=== PATIENT | male | born 1940 | race Hispanic/Latino ===

== ENCOUNTER 2019-09-26 19:56 | Emergency (ER) | payer OTHER ==
[2019-09-26 20:52] LABS: BASOPHILS % (AUTO) 0.6 % (0.0-5.0); EOSINOPHILS % (AUTO) 1.8 % (0.0-8.0); HEMATOCRIT 34.9 % (42-54); MEAN CORPUSCULAR HEMOGLOBIN 27.7 pg (27.0-33.0); MEAN CORPUSCULAR HGB CONC 33.6 g/dL (32.0-36.0); MEAN CORPUSCULAR VOLUME 82.4 fL (79-99); MONOCYTES % (AUTO) 6.7 % (3.0-13.0); NEUTROPHILS % (AUTO) 77.9 % (40.0-77.0); PLATELET COUNT (AUTO) 286 K/uL (130-400); RED BLOOD CELL COUNT(AUTO) 4.23 MIL/uL (4.50-6.20); RED CELL DISTRIBUTION WIDTH 14.6 % (11.0-15.5); WHITE BLOOD COUNT (AUTO) 9.7 K/uL (4.8-10.8)
[2019-09-26 21:00] LABS: CREATININE 1.7 mg/dL (0.5-1.5); POTASSIUM 5.4 mmol/L (3.5-5.1)
== END 2019-09-26 21:42 | disposition home or self-care (01) ==
LOC: EDH 19:56
DX: E87.5 Hyperkalemia (principal); R53.1 Weakness; I10 Essential (primary) hypertension; E11.9 Type 2 diabetes mellitus without complications; F41.9 Anxiety disorder, unspecified; F32.9 Major depressive disorder, single episode, unspecified; Z87.891 Personal history of nicotine dependence
CPT/HCPCS: 36415; 80048; 85025; 93005

== ENCOUNTER → 2020-04-13 | Outpatient (CLI) | payer OTHER ==
[~2020-04-13] MED LIST: LEVO500T2 PO
== END | disposition home or self-care (01) ==
LOC: SHCH 13:57
PROVIDERS: ATTEND Internal Medicine Cardiovascular Disease
DX: I73.89 Other specified peripheral vascular diseases (principal)
CPT/HCPCS: 93971

== ENCOUNTER 2020-11-30 13:06 | Inpatient (IN) | payer MEDICARE, OTHER ==
[~2020-11-30] VITALS: Ht 172.7 cm; Wt 71.6 kg
[2020-11-30 13:54] LABS: BASOPHILS % (AUTO) 0.3 % (0.0-5.0); EOSINOPHILS % (AUTO) 0.4 % (0.0-8.0); HEMATOCRIT 33.8 % (42-54); LYMPHOCYTES % (AUTO) 7.4 % (21.0-51.0); MEAN CORPUSCULAR HEMOGLOBIN 25.7 pg (27.0-33.0); MEAN CORPUSCULAR HGB CONC 31.4 g/dL (32.0-36.0); MONOCYTES % (AUTO) 5.4 % (3.0-13.0); NEUTROPHILS % (AUTO) 85.7 % (40.0-77.0); PLATELET COUNT (AUTO) 524 K/uL (130-400); RED BLOOD CELL COUNT(AUTO) 4.12 MIL/uL (4.50-6.20); RED CELL DISTRIBUTION WIDTH 15.2 % (11.0-15.5); WHITE BLOOD COUNT (AUTO) 11.9 K/uL (4.8-10.8)
[2020-11-30 14:08] LABS: INR 1.02 (0.85-1.15); PROTHROMBIN TIME 11.1 SEC (9.6-11.6)
[2020-11-30 14:20] LABS: CREATININE 1.7 mg/dL (0.5-1.5); POTASSIUM 5.3 mmol/L (3.5-5.1)
[2020-11-30 14:24] LABS: ALBUMIN 2.9 g/dL (3.5-5.0); BILIRUBIN,TOTAL 0.2 mg/dL (0.2-1.0); TOTAL PROTEIN, SERUM 8.4 g/dL (6.0-8.3)
[2020-11-30 14:54] LABS: B-TYPE NATRIURETIC PEPTIDE 229 pg/mL (0-100)
[2020-11-30] MEDS ORDERED: LEVOFLOXACIN 500 MG/D5W 100 ML 100 ML ONE (15:29)
[2020-11-30] MEDS ORDERED: ZOSYN 3.375GM+NS 50ML 50 ML IV ONE ×2 (15:29→20:33)
[2020-11-30 15:38] LABS: ERYTHROCYTE SEDIMENTATION RATE 118 MM/HR (0-20)
[2020-11-30] MEDS ORDERED: RENAL DOSE IV ONE (17:30)
[2020-11-30 18:29] LABS: APPEARANCE,URINE Clear (CLEAR); BILIRUBIN,URINE Negative (NEGATIVE); COLOR,URINE Yellow (YELLOW); GLUCOSE, URINE (UA) >=1000 mg/dL (NEGATIVE); KETONES,URINE 15 mg/dL (NEGATIVE); LEUKOCYTE ESTERASE ,URINE Negative (NEGATIVE); NITRATE,URINE Negative (NEGATIVE); OCCULT BLOOD,URINE Negative (NEGATIVE); PROTEIN,URINE POS 1+ mg/dL (NEGATIVE); UROBILINOGEN,URINE 0.2 mg/dL (0.2-1.0)
[2020-11-30 18:30] LABS: HEMOGLOBIN A1C 6.2 % (4.0-6.0)
[2020-11-30 18:44] LABS: RBC,URINE 0-1 /HPF (0-1); WBC,URINE 0-1 /HPF (0-1)
[2020-11-30 18:45] LABS: BACTERIA,URINE Rare /HPF (None Seen); SQUAMOUS EPITHELIAL CELL,UR Rare /HPF (0-2)
[2020-11-30] MEDS ORDERED: GABAPENTIN 100 MG CAPSULE ONE (20:33)
[2020-11-30] MEDS: ZOSYN 3.375GM+NS 50ML 50 ML IV SCH (21:00)
[2020-11-30] MEDS: GABAPENTIN 100 MG CAPSULE PO SCH (21:00)
[2020-11-30] MEDS: INSULIN HUMULIN R 100 UNIT/ML 3ML SQ SCH (21:00)
[2020-11-30] MEDS: INSULIN GLARGINE 100 UNITS/ML 10 ML VIAL SQ SCH (21:00)
[2020-11-30] MEDS ORDERED: PHARMACY COMMUNICATION MISC SCH (21:15)
[2020-11-30] MEDS ORDERED: HEPARIN 25000 UNITS/250 ML D5W 250 ML IV PRN (21:30)
[2020-12-01] MEDS ORDERED: MORPHINE SULFATE 2 MG/ML 1ML SYG ONE ×3 (02:19→20:20)
[2020-12-01] MEDS ORDERED: MORPHINE SULFATE 2 MG/ML 1ML SYG IVP PRN (02:45)
[2020-12-01] MEDS ORDERED: HEPARIN SODIUM 5000UNIT/ML 1ML VIAL ONE (03:32)
[2020-12-01] MEDS ORDERED: HEPARIN 25000 UNITS/250 ML D5W 250 ML IV ONE (03:32)
[2020-12-01] MEDS: ZOSYN 3.375GM+NS 50ML 50 ML IV SCH ×3 (05:00→21:00)
[2020-12-01] MEDS ORDERED: ZOSYN 3.375GM+NS 50ML 50 ML IV ONE ×3 (05:45→20:22)
[2020-12-01 06:19] LABS: BASOPHILS % (AUTO) 0.3 % (0.0-5.0); EOSINOPHILS % (AUTO) 0.4 % (0.0-8.0); HEMATOCRIT 31.8 % (42-54); LYMPHOCYTES % (AUTO) 8.6 % (21.0-51.0); MEAN CORPUSCULAR HEMOGLOBIN 26.1 pg (27.0-33.0); MEAN CORPUSCULAR HGB CONC 32.4 g/dL (32.0-36.0); MEAN CORPUSCULAR VOLUME 80.7 fL (79-99); MONOCYTES % (AUTO) 5.6 % (3.0-13.0); NEUTROPHILS % (AUTO) 84.3 % (40.0-77.0); PLATELET COUNT (AUTO) 531 K/uL (130-400); RED BLOOD CELL COUNT(AUTO) 3.94 MIL/uL (4.50-6.20); WHITE BLOOD COUNT (AUTO) 11.5 K/uL (4.8-10.8)
[2020-12-01 06:27] LABS: ALBUMIN 2.7 g/dL (3.5-5.0); BILIRUBIN,TOTAL 0.2 mg/dL (0.2-1.0); CREATININE 1.4 mg/dL (0.5-1.5); POTASSIUM 4.9 mmol/L (3.5-5.1); TOTAL PROTEIN, SERUM 8.1 g/dL (6.0-8.3)
[2020-12-01] MEDS: LEVOTHYROXINE 75 MCG TABLET PO SCH (06:30)
[2020-12-01 06:44] LABS: CRP QUANTITATIVE 283.4 mg/L (0.00-9.0)
[2020-12-01] MEDS: INSULIN HUMULIN R 100 UNIT/ML 3ML SQ SCH ×4 (07:30→21:00)
[2020-12-01] MEDS ORDERED: ASPIRIN 81MG TAB.CHEW ONE (07:47)
[2020-12-01] MEDS ORDERED: AMLODIPINE BESYLATE 5 MG TAB ONE (07:48)
[2020-12-01] MEDS ORDERED: LEVOTHYROXINE 150 MCG TABLET ONE (07:48)
[2020-12-01] MEDS ORDERED: PANTOPRAZOLE SODIUM 40 MG TABLET.DR ONE (07:49)
[2020-12-01] MEDS ORDERED: GABAPENTIN 100 MG CAPSULE ONE ×2 (08:32→20:22)
[2020-12-01] MEDS: PANTOPRAZOLE SODIUM 40 MG TABLET.DR PO SCH (09:00)
[2020-12-01] MEDS: ASPIRIN 81MG TAB.CHEW PO SCH (09:00)
[2020-12-01] MEDS: AMLODIPINE BESYLATE 5 MG TAB PO SCH (09:00)
[2020-12-01] MEDS: GABAPENTIN 100 MG CAPSULE PO SCH ×2 (09:00→21:00)
[2020-12-01 11:31] LABS: PROTEIN,URINE RANDOM 76.3 mg/dL (0-11.9)
[2020-12-01] MEDS ORDERED: ASPI-1012 PO (12:05)
[2020-12-01] MEDS ORDERED: AEC81 PO (12:05)
[2020-12-01] MEDS ORDERED: ROSU5TAB12 PO (12:06)
[2020-12-01] MEDS ORDERED: PIOG30TA70 PO (12:07)
[2020-12-01] MEDS ORDERED: AMLO-257 PO (12:08)
[2020-12-01] MEDS ORDERED: GABA-529 PO (12:10)
[2020-12-01] MEDS ORDERED: PANT40SU PO (12:11)
[2020-12-01] MEDS ORDERED: LEVO75 PO (12:12)
[2020-12-01] MEDS ORDERED: METF-446 PO (12:12)
[2020-12-01] MEDS ORDERED: LATA7.5D OP (12:14)
[2020-12-01] MEDS ORDERED: INSU100V12 SQ (12:15)
[2020-12-01 14:20] LABS: INR 1.09 (0.85-1.15); PROTHROMBIN TIME 11.8 SEC (9.6-11.6)
[2020-12-01 14:21] LABS: PARTIAL THROMBOPLASTIN TIME 63.8 SEC (26.3-35.5)
[2020-12-01] MEDS ORDERED: INSULIN HUMULIN R 100 UNIT/ML 3ML ONE (19:28)
[2020-12-01] MEDS: INSULIN GLARGINE 100 UNITS/ML 10 ML VIAL SQ SCH (21:00)
[2020-12-01] MEDS: ATORVASTATIN CALCIUM 10 MG TABLET PO SCH (21:00)
[2020-12-01 21:52] LABS: INR 1.05 (0.85-1.15); PROTHROMBIN TIME 11.4 SEC (9.6-11.6)
[2020-12-01 21:53] LABS: PARTIAL THROMBOPLASTIN TIME 38.4 SEC (26.3-35.5)
[2020-12-01] MEDS ORDERED: LABETALOL 20 MG/4 ML DISP.SYRIN IV PRN (22:30)
[2020-12-01] MEDS ORDERED: LISINOPRIL 5 MG TABLET ONE ×2 (22:30→22:32)
[2020-12-01] MEDS: HYDROCHLOROTHIAZIDE 25 MG TABLET PO SCH (22:30)
[2020-12-01] MEDS: LISINOPRIL 10 MG TABLET PO SCH (22:30)
[2020-12-01] MEDS ORDERED: HYDROCHLOROTHIAZIDE 25 MG TABLET ONE (22:33)
[2020-12-01 22:45] VITALS: BP 155/77
[2020-12-02] MEDS ORDERED: HYDROMORPHONE 1 MG/1 ML AMP ONE (01:49)
[2020-12-02 03:57] VITALS: BP 113/62
[2020-12-02 04:39] LABS: BASOPHILS % (AUTO) 0.4 % (0.0-5.0); EOSINOPHILS % (AUTO) 0.6 % (0.0-8.0); HEMATOCRIT 29.7 % (42-54); MEAN CORPUSCULAR HGB CONC 32.3 g/dL (32.0-36.0); MEAN CORPUSCULAR VOLUME 80.5 fL (79-99); MONOCYTES % (AUTO) 9.7 % (3.0-13.0); NEUTROPHILS % (AUTO) 79.6 % (40.0-77.0); PLATELET COUNT (AUTO) 481 K/uL (130-400); RED BLOOD CELL COUNT(AUTO) 3.69 MIL/uL (4.50-6.20); WHITE BLOOD COUNT (AUTO) 11.3 K/uL (4.8-10.8)
[2020-12-02 04:55] LABS: ALBUMIN 2.5 g/dL (3.5-5.0); BILIRUBIN,TOTAL 0.2 mg/dL (0.2-1.0); CREATININE 1.4 mg/dL (0.5-1.5); MAGNESIUM 1.4 mg/dL (1.80-2.40); POTASSIUM 4.4 mmol/L (3.5-5.1); TOTAL PROTEIN, SERUM 7.4 g/dL (6.0-8.3)
[2020-12-02] MEDS: ZOSYN 3.375GM+NS 50ML 50 ML IV SCH ×3 (05:17→21:43)
[2020-12-02] MEDS: LEVOTHYROXINE 75 MCG TABLET PO SCH (05:23)
[2020-12-02] MEDS: INSULIN HUMULIN R 100 UNIT/ML 3ML SQ SCH ×4 (06:07→21:58)
[2020-12-02 07:00] VITALS: BP 126/56
[2020-12-02] MEDS ORDERED: LISI20TA24 PO (08:03)
[2020-12-02] MEDS: AMLODIPINE BESYLATE 5 MG TAB PO SCH (09:00)
[2020-12-02] MEDS: GABAPENTIN 100 MG CAPSULE PO SCH ×2 (09:00→21:42)
[2020-12-02] MEDS: LATANOPROST 2.5 ML DROPS OP SCH (09:00)
[2020-12-02] MEDS ORDERED: NON-FORMULARY MEDICATION 1 EACH (Latanoprost/Pf (Latanoprost 0.005% Eye Drop) 7.5 ML) OP SCH (09:00)
[2020-12-02] MEDS: PANTOPRAZOLE SODIUM 40 MG TABLET.DR PO SCH (09:00)
[2020-12-02] MEDS: ASPIRIN 81MG TAB.CHEW PO SCH (09:00)
[2020-12-02] MEDS: LISINOPRIL 10 MG TABLET PO SCH (09:00)
[2020-12-02] MEDS ORDERED: NON-FORMULARY MEDICATION 1 EACH (Rosuvastatin Calcium 5 MG) PO SCH (09:00)
[2020-12-02] MEDS: HYDROCHLOROTHIAZIDE 25 MG TABLET PO SCH (09:00)
[2020-12-02 09:57] LABS: INR 1.06 (0.85-1.15); PROTHROMBIN TIME 11.5 SEC (9.6-11.6)
[2020-12-02] MEDS: MAGNESIUM 2GM PREMIX 50ML 50 ML IV SCH (11:17)
[2020-12-02 11:30] VITALS: BP 131/58
[2020-12-02] MEDS ORDERED: IODIXANOL 320 MG/ML 100 ML VIAL ONE (12:22)
[2020-12-02] MEDS ORDERED: LIDOCAINE HCL 2% 20ML ONE (12:22)
[2020-12-02] MEDS ORDERED: HEPARIN SODIUM 1000UNIT/ML 10ML VIAL ONE (12:22)
[2020-12-02] MEDS ORDERED: NITROGLYCERIN 2 MG/VIAL VIAL IV ONE (12:43)
[2020-12-02] MEDS ORDERED: MIDAZOLAM HCL 1 MG/ML 2ML VIAL ONE (12:58)
[2020-12-02] MEDS ORDERED: FENTANYL CITRATE PF 50 MCG/1 ML 2ML VIAL ONE (12:59)
[2020-12-02] MEDS ORDERED: LIDOCAINE HCL 1% MDV 50ML VIAL ONE (13:14)
[2020-12-02] MEDS ORDERED: SODIUM CHLORIDE 0.9% 1000ML 1,000 ML IV SCH (14:30)
[2020-12-02] MEDS ORDERED: ASPIRIN 81MG TAB.CHEW ONE (14:34)
[2020-12-02] MEDS ORDERED: CLOPIDOGREL BISULFATE 300 MG TAB ONE (14:34)
[2020-12-02 15:30] VITALS: BP 99/44
[2020-12-02 20:00] VITALS: BP 114/67
[2020-12-02] MEDS: ATORVASTATIN CALCIUM 10 MG TABLET PO SCH (21:42)
[2020-12-02] MEDS: INSULIN GLARGINE 100 UNITS/ML 10 ML VIAL SQ SCH (21:56)
[2020-12-02 23:46] VITALS: BP 127/52
[2020-12-03] MEDS: HYDROCHLOROTHIAZIDE 25 MG TABLET PO SCH ×3 (01:38→22:30)
[2020-12-03] MEDS: LISINOPRIL 10 MG TABLET PO SCH ×3 (01:39→22:30)
[2020-12-03] MEDS: HYDROMORPHONE HCL 0.5 MG/0.5 ML ML IVP PRN ×2 (01:40→08:22)
[2020-12-03 04:00] VITALS: BP 147/51
[2020-12-03] MEDS ORDERED: SODIUM CHLORIDE 0.9% 250 ML IV ONE (04:46)
[2020-12-03] MEDS: ZOSYN 3.375GM+NS 50ML 50 ML IV SCH ×3 (05:05→22:15)
[2020-12-03 05:17] LABS: BASOPHILS % (AUTO) 0.3 % (0.0-5.0); EOSINOPHILS % (AUTO) 1.1 % (0.0-8.0); HEMATOCRIT 27.8 % (42-54); LYMPHOCYTES % (AUTO) 8.9 % (21.0-51.0); MEAN CORPUSCULAR HEMOGLOBIN 25.9 pg (27.0-33.0); MEAN CORPUSCULAR VOLUME 80.8 fL (79-99); MONOCYTES % (AUTO) 9.3 % (3.0-13.0); NEUTROPHILS % (AUTO) 79.6 % (40.0-77.0); PLATELET COUNT (AUTO) 490 K/uL (130-400); RED BLOOD CELL COUNT(AUTO) 3.44 MIL/uL (4.50-6.20); WHITE BLOOD COUNT (AUTO) 9.3 K/uL (4.8-10.8)
[2020-12-03 05:26] LABS: CREATININE 1.4 mg/dL (0.5-1.5); POTASSIUM 4.5 mmol/L (3.5-5.1)
[2020-12-03] MEDS: INSULIN HUMULIN R 100 UNIT/ML 3ML SQ SCH ×4 (05:58→22:21)
[2020-12-03] MEDS: LEVOTHYROXINE 75 MCG TABLET PO SCH (06:06)
[2020-12-03 08:00] VITALS: BP 128/68
[2020-12-03] MEDS: AMLODIPINE BESYLATE 5 MG TAB PO SCH (08:19)
[2020-12-03] MEDS: CLOPIDOGREL BISULFATE 75 MG TAB PO SCH (08:19)
[2020-12-03] MEDS: GABAPENTIN 100 MG CAPSULE PO SCH ×2 (08:20→22:15)
[2020-12-03] MEDS: PANTOPRAZOLE SODIUM 40 MG TABLET.DR PO SCH (08:20)
[2020-12-03] MEDS: ASPIRIN 81MG TAB.CHEW PO SCH (08:20)
[2020-12-03] MEDS: LATANOPROST 2.5 ML DROPS OP SCH (08:21)
[2020-12-03 11:00] VITALS: BP 137/63
[2020-12-03 16:37] VITALS: BP 125/56
[2020-12-03] MEDS: MAGNESIUM 2GM PREMIX 50ML 50 ML IV SCH (16:41)
[2020-12-03 20:00] VITALS: BP 131/54
[2020-12-03] MEDS: ATORVASTATIN CALCIUM 10 MG TABLET PO SCH (22:14)
[2020-12-03] MEDS: INSULIN GLARGINE 100 UNITS/ML 10 ML VIAL SQ SCH (22:20)
[2020-12-03 23:44] VITALS: BP 139/56
[2020-12-04] VITALS (22 sets, daily range): BP systolic 97–159; BP diastolic 40–76
[2020-12-04 04:17] LABS: BASOPHILS % (AUTO) 0.2 % (0.0-5.0); EOSINOPHILS % (AUTO) 0.9 % (0.0-8.0); HEMATOCRIT 27.6 % (42-54); LYMPHOCYTES % (AUTO) 10.1 % (21.0-51.0); MEAN CORPUSCULAR HGB CONC 32.2 g/dL (32.0-36.0); MEAN CORPUSCULAR VOLUME 80.7 fL (79-99); NEUTROPHILS % (AUTO) 80.1 % (40.0-77.0); PLATELET COUNT (AUTO) 466 K/uL (130-400); RED BLOOD CELL COUNT(AUTO) 3.42 MIL/uL (4.50-6.20); RED CELL DISTRIBUTION WIDTH 14.9 % (11.0-15.5); WHITE BLOOD COUNT (AUTO) 10.8 K/uL (4.8-10.8)
[2020-12-04 04:28] LABS: CREATININE 2.1 mg/dL (0.5-1.5); POTASSIUM 4.1 mmol/L (3.5-5.1)
[2020-12-04] MEDS: ZOSYN 3.375GM+NS 50ML 50 ML IV SCH ×3 (04:37→19:55)
[2020-12-04] MEDS: LEVOTHYROXINE 75 MCG TABLET PO SCH (06:28)
[2020-12-04] MEDS: INSULIN HUMULIN R 100 UNIT/ML 3ML SQ SCH ×4 (06:28→20:03)
[2020-12-04] MEDS ORDERED: MIDAZOLAM HCL 1 MG/ML 2ML VIAL ONE ×2 (07:17→08:54)
[2020-12-04] MEDS ORDERED: PROPOFOL 10 MG/ML 20ML VIAL IV ONE (07:18)
[2020-12-04] MEDS ORDERED: FENTANYL CITRATE PF 50 MCG/1 ML 5ML AMP IV ONE (07:19)
[2020-12-04] MEDS ORDERED: LIDOCAINE HCL 1% 20 ML VIAL ONE (07:34)
[2020-12-04] MEDS ORDERED: BUPIVACAINE/PF 0.5% 30ML VIAL ONE (07:34)
[2020-12-04] MEDS: LATANOPROST 2.5 ML DROPS OP SCH (09:00)
[2020-12-04] MEDS: PANTOPRAZOLE SODIUM 40 MG TABLET.DR PO SCH (12:50)
[2020-12-04] MEDS: LISINOPRIL 10 MG TABLET PO SCH (12:51)
[2020-12-04] MEDS: GABAPENTIN 100 MG CAPSULE PO SCH ×2 (12:51→19:55)
[2020-12-04] MEDS: AMLODIPINE BESYLATE 5 MG TAB PO SCH (12:51)
[2020-12-04] MEDS: ASPIRIN 81MG TAB.CHEW PO SCH (12:52)
[2020-12-04] MEDS: CLOPIDOGREL BISULFATE 75 MG TAB PO SCH (12:52)
[2020-12-04] MEDS: MORPHINE SULFATE 2 MG/ML 1ML SYG IVP PRN ×3 (14:11→23:45)
[2020-12-04] MEDS: ATORVASTATIN CALCIUM 10 MG TABLET PO SCH (19:55)
[2020-12-04] MEDS: INSULIN GLARGINE 100 UNITS/ML 10 ML VIAL SQ SCH (19:56)
[2020-12-05] MEDS: HYDROMORPHONE HCL 0.5 MG/0.5 ML ML IVP PRN ×2 (01:04→09:12)
[2020-12-05 04:00] VITALS: BP 134/62
[2020-12-05] MEDS: ZOSYN 3.375GM+NS 50ML 50 ML IV SCH ×3 (04:06→20:13)
[2020-12-05] MEDS: MORPHINE SULFATE 2 MG/ML 1ML SYG IVP PRN ×4 (05:08→20:15)
[2020-12-05] MEDS: LEVOTHYROXINE 75 MCG TABLET PO SCH (05:08)
[2020-12-05] MEDS: INSULIN HUMULIN R 100 UNIT/ML 3ML SQ SCH ×4 (05:44→20:43)
[2020-12-05 06:11] LABS: BASOPHILS % (AUTO) 0.2 % (0.0-5.0); EOSINOPHILS % (AUTO) 1.1 % (0.0-8.0); HEMATOCRIT 24.6 % (42-54); LYMPHOCYTES % (AUTO) 6.2 % (21.0-51.0); MEAN CORPUSCULAR HEMOGLOBIN 26.2 pg (27.0-33.0); MEAN CORPUSCULAR HGB CONC 32.1 g/dL (32.0-36.0); MEAN CORPUSCULAR VOLUME 81.7 fL (79-99); MONOCYTES % (AUTO) 5.7 % (3.0-13.0); NEUTROPHILS % (AUTO) 86.1 % (40.0-77.0); PLATELET COUNT (AUTO) 472 K/uL (130-400); RED BLOOD CELL COUNT(AUTO) 3.01 MIL/uL (4.50-6.20); RED CELL DISTRIBUTION WIDTH 14.9 % (11.0-15.5); WHITE BLOOD COUNT (AUTO) 13.1 K/uL (4.8-10.8)
[2020-12-05 06:20] LABS: CREATININE 1.5 mg/dL (0.5-1.5); MAGNESIUM 1.9 mg/dL (1.80-2.40); POTASSIUM 4.2 mmol/L (3.5-5.1)
[2020-12-05 08:00] VITALS: BP 141/68
[2020-12-05] MEDS: LATANOPROST 2.5 ML DROPS OP SCH (09:00)
[2020-12-05] MEDS: PANTOPRAZOLE SODIUM 40 MG TABLET.DR PO SCH (09:09)
[2020-12-05] MEDS: ASPIRIN 81MG TAB.CHEW PO SCH (09:09)
[2020-12-05] MEDS: GABAPENTIN 100 MG CAPSULE PO SCH ×2 (09:09→20:14)
[2020-12-05] MEDS: AMLODIPINE BESYLATE 5 MG TAB PO SCH (09:09)
[2020-12-05] MEDS: CLOPIDOGREL BISULFATE 75 MG TAB PO SCH (09:10)
[2020-12-05 11:54] VITALS: BP 128/57
[2020-12-05 16:00] VITALS: BP 144/56
[2020-12-05 20:00] VITALS: BP 164/83
[2020-12-05] MEDS: LISINOPRIL 10 MG TABLET PO SCH (20:13)
[2020-12-05] MEDS: ATORVASTATIN CALCIUM 10 MG TABLET PO SCH (20:13)
[2020-12-05] MEDS: INSULIN GLARGINE 100 UNITS/ML 10 ML VIAL SQ SCH (20:45)
[2020-12-06] VITALS (7 sets, daily range): BP systolic 123–143; BP diastolic 54–75
[2020-12-06] MEDS: MORPHINE SULFATE 2 MG/ML 1ML SYG IVP PRN (03:16)
[2020-12-06] MEDS: ZOSYN 3.375GM+NS 50ML 50 ML IV SCH ×3 (04:47→22:03)
[2020-12-06] MEDS: HYDROMORPHONE 1 MG/1 ML AMP IVP PRN ×2 (04:51→11:24)
[2020-12-06 05:38] LABS: BASOPHILS % (AUTO) 0.2 % (0.0-5.0); EOSINOPHILS % (AUTO) 1.3 % (0.0-8.0); HEMATOCRIT 25.5 % (42-54); LYMPHOCYTES % (AUTO) 6.3 % (21.0-51.0); MEAN CORPUSCULAR HEMOGLOBIN 26.5 pg (27.0-33.0); MEAN CORPUSCULAR HGB CONC 32.2 g/dL (32.0-36.0); MEAN CORPUSCULAR VOLUME 82.3 fL (79-99); MONOCYTES % (AUTO) 7.4 % (3.0-13.0); NEUTROPHILS % (AUTO) 84.3 % (40.0-77.0); PLATELET COUNT (AUTO) 503 K/uL (130-400); WHITE BLOOD COUNT (AUTO) 14.7 K/uL (4.8-10.8)
[2020-12-06 05:49] LABS: CREATININE 1.5 mg/dL (0.5-1.5); POTASSIUM 4.6 mmol/L (3.5-5.1)
[2020-12-06] MEDS: LEVOTHYROXINE 75 MCG TABLET PO SCH (06:03)
[2020-12-06] MEDS: INSULIN HUMULIN R 100 UNIT/ML 3ML SQ SCH ×4 (06:04→22:14)
[2020-12-06] MEDS: PANTOPRAZOLE SODIUM 40 MG TABLET.DR PO SCH (09:00)
[2020-12-06] MEDS: LATANOPROST 2.5 ML DROPS OP SCH (09:00)
[2020-12-06] MEDS: CLOPIDOGREL BISULFATE 75 MG TAB PO SCH (09:00)
[2020-12-06] MEDS: GABAPENTIN 100 MG CAPSULE PO SCH ×2 (09:00→22:04)
[2020-12-06] MEDS: AMLODIPINE BESYLATE 5 MG TAB PO SCH (09:00)
[2020-12-06] MEDS: ASPIRIN 81MG TAB.CHEW PO SCH (09:00)
[2020-12-06] MEDS: ATORVASTATIN CALCIUM 10 MG TABLET PO SCH (22:04)
[2020-12-06] MEDS: LISINOPRIL 10 MG TABLET PO SCH (22:04)
[2020-12-06] MEDS: INSULIN GLARGINE 100 UNITS/ML 10 ML VIAL SQ SCH (22:15)
[2020-12-07 04:00] VITALS: BP 147/63
[2020-12-07 05:03] LABS: BASOPHILS % (AUTO) 0.2 % (0.0-5.0); EOSINOPHILS % (AUTO) 1.3 % (0.0-8.0); HEMATOCRIT 24.1 % (42-54); LYMPHOCYTES % (AUTO) 6.2 % (21.0-51.0); MEAN CORPUSCULAR HEMOGLOBIN 26.4 pg (27.0-33.0); MEAN CORPUSCULAR HGB CONC 32.4 g/dL (32.0-36.0); MEAN CORPUSCULAR VOLUME 81.7 fL (79-99); MONOCYTES % (AUTO) 7.6 % (3.0-13.0); NEUTROPHILS % (AUTO) 84.1 % (40.0-77.0); PLATELET COUNT (AUTO) 487 K/uL (130-400); RED BLOOD CELL COUNT(AUTO) 2.95 MIL/uL (4.50-6.20); RED CELL DISTRIBUTION WIDTH 14.6 % (11.0-15.5); WHITE BLOOD COUNT (AUTO) 14.3 K/uL (4.8-10.8)
[2020-12-07 05:20] LABS: % IRON SATURATION 9.8 % (30-44)
[2020-12-07 05:25] LABS: BILIRUBIN,TOTAL 0.2 mg/dL (0.2-1.0); CREATININE 1.6 mg/dL (0.5-1.5); POTASSIUM 4.5 mmol/L (3.5-5.1)
[2020-12-07] MEDS: LEVOTHYROXINE 75 MCG TABLET PO SCH (06:02)
[2020-12-07] MEDS: ZOSYN 3.375GM+NS 50ML 50 ML IV SCH ×3 (06:03→21:00)
[2020-12-07] MEDS: MORPHINE SULFATE 2 MG/ML 1ML SYG IVP PRN ×3 (06:04→22:47)
[2020-12-07] MEDS: INSULIN HUMULIN R 100 UNIT/ML 3ML SQ SCH ×4 (06:45→21:35)
[2020-12-07 07:46] VITALS: BP 140/56
[2020-12-07] MEDS: ASPIRIN 81MG TAB.CHEW PO SCH (08:54)
[2020-12-07] MEDS: AMLODIPINE BESYLATE 5 MG TAB PO SCH (08:54)
[2020-12-07] MEDS: PANTOPRAZOLE SODIUM 40 MG TABLET.DR PO SCH (08:54)
[2020-12-07] MEDS: GABAPENTIN 100 MG CAPSULE PO SCH ×2 (08:54→21:00)
[2020-12-07] MEDS: CLOPIDOGREL BISULFATE 75 MG TAB PO SCH (08:55)
[2020-12-07] MEDS: LATANOPROST 2.5 ML DROPS OP SCH (08:55)
[2020-12-07 11:16] VITALS: BP 150/65
[2020-12-07] MEDS ORDERED: COMPOUND IV MISC 1 EACH IVSOLN MISC PRN (11:30)
[2020-12-07 15:43] VITALS: BP 135/52
[2020-12-07 20:27] VITALS: BP 144/59
[2020-12-07] MEDS: ATORVASTATIN CALCIUM 10 MG TABLET PO SCH (21:00)
[2020-12-07] MEDS: INSULIN GLARGINE 100 UNITS/ML 10 ML VIAL SQ SCH (21:34)
[2020-12-07] MEDS: LISINOPRIL 10 MG TABLET PO SCH (21:48)
[2020-12-07 23:32] VITALS: BP 120/57
[2020-12-08 03:52] VITALS: BP 118/56
[2020-12-08] MEDS: ZOSYN 3.375GM+NS 50ML 50 ML IV SCH ×3 (04:41→20:44)
[2020-12-08] MEDS: MORPHINE SULFATE 2 MG/ML 1ML SYG IVP PRN ×2 (05:05→08:27)
[2020-12-08 06:15] LABS: BASOPHILS % (AUTO) 0.1 % (0.0-5.0); EOSINOPHILS % (AUTO) 1.2 % (0.0-8.0); HEMATOCRIT 24.4 % (42-54); LYMPHOCYTES % (AUTO) 6.7 % (21.0-51.0); MEAN CORPUSCULAR HEMOGLOBIN 26.3 pg (27.0-33.0); MEAN CORPUSCULAR VOLUME 82.2 fL (79-99); MONOCYTES % (AUTO) 8.8 % (3.0-13.0); NEUTROPHILS % (AUTO) 82.8 % (40.0-77.0); PLATELET COUNT (AUTO) 512 K/uL (130-400); RED BLOOD CELL COUNT(AUTO) 2.97 MIL/uL (4.50-6.20); RED CELL DISTRIBUTION WIDTH 14.5 % (11.0-15.5); WHITE BLOOD COUNT (AUTO) 14.7 K/uL (4.8-10.8)
[2020-12-08] MEDS: LEVOTHYROXINE 75 MCG TABLET PO SCH (06:34)
[2020-12-08 06:36] LABS: BILIRUBIN,TOTAL 0.2 mg/dL (0.2-1.0); CREATININE 1.4 mg/dL (0.5-1.5); POTASSIUM 4.1 mmol/L (3.5-5.1); TOTAL PROTEIN, SERUM 7.4 g/dL (6.0-8.3)
[2020-12-08] MEDS: INSULIN HUMULIN R 100 UNIT/ML 3ML SQ SCH ×4 (06:36→20:54)
[2020-12-08 08:18] VITALS: BP 148/66
[2020-12-08] MEDS: AMLODIPINE BESYLATE 5 MG TAB PO SCH (08:26)
[2020-12-08] MEDS: GABAPENTIN 100 MG CAPSULE PO SCH ×2 (08:26→20:44)
[2020-12-08] MEDS: ASPIRIN 81MG TAB.CHEW PO SCH (08:27)
[2020-12-08] MEDS: PANTOPRAZOLE SODIUM 40 MG TABLET.DR PO SCH (08:27)
[2020-12-08] MEDS: CLOPIDOGREL BISULFATE 75 MG TAB PO SCH (08:27)
[2020-12-08] MEDS: LATANOPROST 2.5 ML DROPS OP SCH (08:32)
[2020-12-08] MEDS: IRON SUCROSE COMPLEX 100 MG in SODIUM CHLORIDE 0.9% 50 ML IV SCH ×2 (09:00→11:30)
[2020-12-08 11:42] VITALS: BP 135/54
[2020-12-08 17:00] VITALS: BP 134/59
[2020-12-08 19:30] VITALS: BP 122/50
[2020-12-08] MEDS: ATORVASTATIN CALCIUM 10 MG TABLET PO SCH (20:44)
[2020-12-08] MEDS: INSULIN GLARGINE 100 UNITS/ML 10 ML VIAL SQ SCH (20:52)
[2020-12-09] VITALS (7 sets, daily range): BP systolic 125–151; BP diastolic 49–72
[2020-12-09] MEDS: MORPHINE SULFATE 2 MG/ML 1ML SYG IVP PRN ×3 (02:35→10:17)
[2020-12-09] MEDS: INSULIN HUMULIN R 100 UNIT/ML 3ML SQ SCH ×4 (05:42→23:01)
[2020-12-09] MEDS: LEVOTHYROXINE 75 MCG TABLET PO SCH (05:44)
[2020-12-09] MEDS: ZOSYN 3.375GM+NS 50ML 50 ML IV SCH ×3 (05:44→22:49)
[2020-12-09 06:06] LABS: BASOPHILS % (AUTO) 0.1 % (0.0-5.0); EOSINOPHILS % (AUTO) 1.1 % (0.0-8.0); HEMATOCRIT 23.4 % (42-54); LYMPHOCYTES % (AUTO) 7.8 % (21.0-51.0); MEAN CORPUSCULAR HEMOGLOBIN 26.1 pg (27.0-33.0); MEAN CORPUSCULAR HGB CONC 32.1 g/dL (32.0-36.0); MEAN CORPUSCULAR VOLUME 81.5 fL (79-99); MONOCYTES % (AUTO) 10.1 % (3.0-13.0); NEUTROPHILS % (AUTO) 80.3 % (40.0-77.0); PLATELET COUNT (AUTO) 528 K/uL (130-400); RED BLOOD CELL COUNT(AUTO) 2.87 MIL/uL (4.50-6.20); RED CELL DISTRIBUTION WIDTH 14.5 % (11.0-15.5); WHITE BLOOD COUNT (AUTO) 15.4 K/uL (4.8-10.8)
[2020-12-09 06:21] LABS: ALBUMIN 1.9 g/dL (3.5-5.0); BILIRUBIN,TOTAL 0.1 mg/dL (0.2-1.0); CREATININE 1.5 mg/dL (0.5-1.5)
[2020-12-09] MEDS: AMLODIPINE BESYLATE 5 MG TAB PO SCH (08:32)
[2020-12-09] MEDS: CLOPIDOGREL BISULFATE 75 MG TAB PO SCH (08:32)
[2020-12-09] MEDS: ASPIRIN 81MG TAB.CHEW PO SCH (08:32)
[2020-12-09] MEDS: PANTOPRAZOLE SODIUM 40 MG TABLET.DR PO SCH (08:32)
[2020-12-09] MEDS: GABAPENTIN 100 MG CAPSULE PO SCH ×2 (08:32→22:49)
[2020-12-09] MEDS: IRON SUCROSE COMPLEX 100 MG in SODIUM CHLORIDE 0.9% 50 ML IV SCH (09:49)
[2020-12-09] MEDS: LATANOPROST 2.5 ML DROPS OP SCH (10:17)
[2020-12-09] MEDS ORDERED: TRAMADOL HCL 50 MG TABLET PO PRN (11:45)
[2020-12-09] MEDS: ATORVASTATIN CALCIUM 10 MG TABLET PO SCH (22:49)
[2020-12-09] MEDS: HYDROCORTISONE 1% 28.35 GM CREAM TP SCH (22:50)
[2020-12-09] MEDS: INSULIN GLARGINE 100 UNITS/ML 10 ML VIAL SQ SCH (23:00)
[2020-12-10 03:40] VITALS: BP 140/91
[2020-12-10 05:04] LABS: BASOPHILS % (AUTO) 0.1 % (0.0-5.0); EOSINOPHILS % (AUTO) 0.2 % (0.0-8.0); HEMATOCRIT 24.8 % (42-54); LYMPHOCYTES % (AUTO) 4.6 % (21.0-51.0); MEAN CORPUSCULAR HEMOGLOBIN 26.3 pg (27.0-33.0); MEAN CORPUSCULAR HGB CONC 31.9 g/dL (32.0-36.0); MEAN CORPUSCULAR VOLUME 82.7 fL (79-99); NEUTROPHILS % (AUTO) 90.5 % (40.0-77.0); PLATELET COUNT (AUTO) 561 K/uL (130-400); RED CELL DISTRIBUTION WIDTH 14.6 % (11.0-15.5); WHITE BLOOD COUNT (AUTO) 18.1 K/uL (4.8-10.8)
[2020-12-10 05:18] LABS: CREATININE 1.4 mg/dL (0.5-1.5); POTASSIUM 4.1 mmol/L (3.5-5.1)
[2020-12-10] MEDS: LEVOTHYROXINE 75 MCG TABLET PO SCH (05:42)
[2020-12-10] MEDS: ZOSYN 3.375GM+NS 50ML 50 ML IV SCH ×3 (05:42→23:03)
[2020-12-10] MEDS: INSULIN HUMULIN R 100 UNIT/ML 3ML SQ SCH ×4 (05:52→23:01)
[2020-12-10] MEDS: DIPHENHYDRAMINE HCL 25 MG CAPSULE PO PRN ×2 (06:31→13:55)
[2020-12-10 07:00] VITALS: BP 124/48
[2020-12-10] MEDS: AMLODIPINE BESYLATE 5 MG TAB PO SCH (09:00)
[2020-12-10] MEDS: ACETAMINOPHEN-CODEINE 300/30MG TAB PO PRN ×2 (09:42→13:46)
[2020-12-10] MEDS: CLOPIDOGREL BISULFATE 75 MG TAB PO SCH (09:42)
[2020-12-10] MEDS: LATANOPROST 2.5 ML DROPS OP SCH (09:43)
[2020-12-10] MEDS: IRON SUCROSE COMPLEX 100 MG in SODIUM CHLORIDE 0.9% 50 ML IV SCH (09:43)
[2020-12-10] MEDS: GABAPENTIN 100 MG CAPSULE PO SCH ×2 (09:43→23:02)
[2020-12-10] MEDS: ASPIRIN 81MG TAB.CHEW PO SCH (09:43)
[2020-12-10] MEDS: PANTOPRAZOLE SODIUM 40 MG TABLET.DR PO SCH (09:43)
[2020-12-10] MEDS: HYDROCORTISONE 1% 28.35 GM CREAM TP SCH ×2 (09:43→23:03)
[2020-12-10 11:30] VITALS: BP 128/56
[2020-12-10 16:00] VITALS: BP 131/52
[2020-12-10] MEDS ORDERED: TRAMADOL HCL 50 MG TABLET PO PRN (19:45)
[2020-12-10 20:04] VITALS: BP 149/78
[2020-12-10] MEDS: INSULIN GLARGINE 100 UNITS/ML 10 ML VIAL SQ SCH (22:59)
[2020-12-10] MEDS: ATORVASTATIN CALCIUM 10 MG TABLET PO SCH (23:02)
[2020-12-11 00:03] VITALS: BP 137/50
[2020-12-11] MEDS: DIPHENHYDRAMINE HCL 25 MG CAPSULE PO PRN ×2 (02:10→12:43)
[2020-12-11] MEDS: ZOSYN 3.375GM+NS 50ML 50 ML IV SCH ×3 (05:24→13:14)
[2020-12-11] MEDS: LEVOTHYROXINE 75 MCG TABLET PO SCH (05:25)
[2020-12-11 05:31] LABS: BASOPHILS % (AUTO) 0.1 % (0.0-5.0); EOSINOPHILS % (AUTO) 0.2 % (0.0-8.0); HEMATOCRIT 22.4 % (42-54); MEAN CORPUSCULAR HEMOGLOBIN 26.1 pg (27.0-33.0); MEAN CORPUSCULAR HGB CONC 32.1 g/dL (32.0-36.0); MEAN CORPUSCULAR VOLUME 81.2 fL (79-99); MONOCYTES % (AUTO) 2.3 % (3.0-13.0); NEUTROPHILS % (AUTO) 89.7 % (40.0-77.0); PLATELET COUNT (AUTO) 516 K/uL (130-400); RED BLOOD CELL COUNT(AUTO) 2.76 MIL/uL (4.50-6.20); RED CELL DISTRIBUTION WIDTH 14.4 % (11.0-15.5); WHITE BLOOD COUNT (AUTO) 14.9 K/uL (4.8-10.8)
[2020-12-11 05:43] LABS: CREATININE 1.5 mg/dL (0.5-1.5); POTASSIUM 3.9 mmol/L (3.5-5.1)
[2020-12-11 06:08] VITALS: BP 131/50
[2020-12-11] MEDS: INSULIN HUMULIN R 100 UNIT/ML 3ML SQ SCH ×4 (06:16→19:58)
[2020-12-11] MEDS: IRON SUCROSE COMPLEX 100 MG in SODIUM CHLORIDE 0.9% 50 ML IV SCH (10:22)
[2020-12-11] MEDS: ASPIRIN 81MG TAB.CHEW PO SCH (10:22)
[2020-12-11] MEDS: AMLODIPINE BESYLATE 5 MG TAB PO SCH (10:22)
[2020-12-11] MEDS: GABAPENTIN 100 MG CAPSULE PO SCH ×2 (10:23→19:55)
[2020-12-11] MEDS: CLOPIDOGREL BISULFATE 75 MG TAB PO SCH (10:23)
[2020-12-11] MEDS: PANTOPRAZOLE SODIUM 40 MG TABLET.DR PO SCH (10:23)
[2020-12-11] MEDS: HYDROCORTISONE 1% 28.35 GM CREAM TP SCH (10:24)
[2020-12-11] MEDS: LATANOPROST 2.5 ML DROPS OP SCH (10:24)
[2020-12-11 11:00] VITALS: BP 146/58
[2020-12-11] MEDS ORDERED: EPOETIN ALFA-EPBX (ESRD) 10,000 UNIT/ML VIAL SQ SCH (15:30)
[2020-12-11 16:35] VITALS: BP 122/45
[2020-12-11 19:47] VITALS: BP 144/74
[2020-12-11] MEDS: ATORVASTATIN CALCIUM 10 MG TABLET PO SCH (19:55)
[2020-12-11] MEDS: INSULIN GLARGINE 100 UNITS/ML 10 ML VIAL SQ SCH (19:57)
== END 2020-12-11 22:45 | disposition short-term general hospital (02) | DRG 240 ==
LOC: EDH 13:06 → EDHIP 17:21 → 3CH 12-01 21:02
PROVIDERS: ADMIT Internal Medicine; ATTEND Internal Medicine
PROC: 0Y6M0Z9 Detachment at Right Foot, Partial 1st Ray, Open Approach (ICD-10-PCS; principal; 2020-11-30)
PROC: 0Y6M0ZB Detachment at Right Foot, Partial 2nd Ray, Open Approach (ICD-10-PCS; 2020-11-30)
PROC: 0Y6M0ZC Detachment at Right Foot, Partial 3rd Ray, Open Approach (ICD-10-PCS; 2020-11-30)
PROC: 0Y6M0ZD Detachment at Right Foot, Partial 4th Ray, Open Approach (ICD-10-PCS; 2020-11-30)
PROC: 0Y6M0ZF Detachment at Right Foot, Partial 5th Ray, Open Approach (ICD-10-PCS; 2020-11-30)
PROC: 0LQV0ZZ Repair Right Foot Tendon, Open Approach (ICD-10-PCS; 2020-11-30)
PROC: 047T3ZZ Dilation of Right Peroneal Artery, Percutaneous Approach (ICD-10-PCS; 2020-11-30)
PROC: 0HRMXK3 Replacement of Right Foot Skin with Nonautologous Tissue Substitute, Full Thickness, External Approach (ICD-10-PCS; 2020-11-30)
PROC: B41D1ZZ Fluoroscopy of Aorta and Bilateral Lower Extremity Arteries using Low Osmolar Contrast (ICD-10-PCS; 2020-11-30)
DX: E11.52 Type 2 diabetes mellitus with diabetic peripheral angiopathy with gangrene (principal); M86.9 Osteomyelitis, unspecified; I50.32 Chronic diastolic (congestive) heart failure; I13.0 Hypertensive heart and chronic kidney disease with heart failure and stage 1 through stage 4 chronic kidney disease, or unspecified chronic kidney disease; N17.9 Acute kidney failure, unspecified; L03.90 Cellulitis, unspecified; E11.22 Type 2 diabetes mellitus with diabetic chronic kidney disease; L97.519 Non-pressure chronic ulcer of other part of right foot with unspecified severity; E11.621 Type 2 diabetes mellitus with foot ulcer; I25.10 Atherosclerotic heart disease of native coronary artery without angina pectoris; N18.30 Chronic kidney disease, stage 3 unspecified; R53.81 Other malaise; B35.1 Tinea unguium; E11.69 Type 2 diabetes mellitus with other specified complication; Z20.822 Contact with and (suspected) exposure to COVID-19; E87.5 Hyperkalemia; F03.90 Unspecified dementia, unspecified severity, without behavioral disturbance, psychotic disturbance, mood disturbance, and anxiety; D64.9 Anemia, unspecified; E03.9 Hypothyroidism, unspecified; E11.42 Type 2 diabetes mellitus with diabetic polyneuropathy; E66.9 Obesity, unspecified; L60.0 Ingrowing nail; L60.2 Onychogryphosis; M77.30 Calcaneal spur, unspecified foot; E78.00 Pure hypercholesterolemia, unspecified; Z79.01 Long term (current) use of anticoagulants; Z79.02 Long term (current) use of antithrombotics/antiplatelets; Z79.82 Long term (current) use of aspirin; Z79.84 Long term (current) use of oral hypoglycemic drugs; Z79.899 Other long term (current) drug therapy; Z87.891 Personal history of nicotine dependence; Z89.422 Acquired absence of other left toe(s); Z95.1 Presence of aortocoronary bypass graft; Z83.3 Family history of diabetes mellitus; Z68.24 Body mass index [BMI] 24.0-24.9, adult
CPT/HCPCS: 36415; 37228; 70450; 71045; 73630; 73718; 75630; 75774; 76770; 80048; 80053; 81001; 82550; 82570; 82948; 83036; 83540; 83550; 83605; 83735; 83880; 84145; 84156; 84443; 84484; 85025; 85610; 85651; 85730; 86140; 87040; 87070; 87076; 87077; 87186; 87205; 93005; 93926; 97039; 99156; 99157; C1769; C1894; G0378; J1170; J1644; J1756; J1815; J1956; J2250; J2543; J2704; J3010; J3475; J3490; J7050; Q0163; Q9967; U0003